=== PATIENT | male | born 1990 | race Caucasian/White ===

== ENCOUNTER 2019-08-01 09:24 | Emergency (ER) | payer BC ==
[~2019-08-01] VITALS: Ht 182.9 cm; Wt 91.6 kg
[2019-08-01 09:30] VITALS: BP 119/77; Ht 182.9 cm; Wt 91.6 kg
== END 2019-08-01 09:47 | disposition home or self-care (01) ==
LOC: ED 09:24
DX: S01.01XA Laceration without foreign body of scalp, initial encounter (principal); W22.8XXA Striking against or struck by other objects, initial encounter; Y93.89 Activity, other specified; Y92.89 Other specified places as the place of occurrence of the external cause; Y99.8 Other external cause status